=== PATIENT | male | born 1965 | race Caucasian/White ===

== ENCOUNTER 2020-03-28 10:23 | Emergency (ER) | payer OTHER ==
[~2020-03-28] VITALS: Ht 170.2 cm; Wt 81.7 kg
[~2020-03-28 10:23] MED LIST: ASPIR 8181 MG; CIPROFLOXACIN500 M1 PO; CLARITIN10 MG; FLOMAX0.4 MG PO; METFORMIN HCL500 MG; PERCOCET 5-3251 EACH PO; PROAIR HFA8.5 GM
[2020-03-28] MEDS ORDERED: LIPITOR 20 MG T20 M1 PO (10:37)
[2020-03-28 11:13] VITALS: BP 133/73
== END 2020-03-28 11:10 | disposition home or self-care (01) ==
LOC: M.ERS 10:23
DX: S01.01XA Laceration without foreign body of scalp, initial encounter (principal); E78.5 Hyperlipidemia, unspecified; Z90.49 Acquired absence of other specified parts of digestive tract; Z79.82 Long term (current) use of aspirin; W20.8XXA Other cause of strike by thrown, projected or falling object, initial encounter; Y93.89 Activity, other specified; Y92.89 Other specified places as the place of occurrence of the external cause; Y99.8 Other external cause status